=== PATIENT | female | born 1955 | race Caucasian/White ===

== ENCOUNTER 2021-06-03 14:41 | Emergency (ER) | payer OTHER ==
[~2021-06-03] VITALS: Ht 160 cm; Wt 86.2 kg
[2021-06-03 14:43] VITALS: BP 155/100
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
[2021-06-03] MEDS ORDERED: ACET-2619 PO (17:13)
[2021-06-03] MEDS ORDERED: LIDO1ADH47 TP (17:13)
[2021-06-03 17:21] VITALS: BP 155/100
--- NOTE | 2021-06-03 17:22 | NUR ---
Patient discharged with v/s stable. Written and verbal after care instructions given and explained. Patient alert, oriented and verbalized understanding of instructions. Ambulatory with steady gait. All questions addressed prior to discharge. ID band removed. Patient advised to follow up with PMD. Rx of acetaminophen, lidocaine (script) given. Patient educated on indication of medication including possible reaction and side effects. Opportunity to ask questions provided and answered.
== END 2021-06-03 17:22 | disposition home or self-care (01) ==
LOC: MED 14:41
DX: S16.1XXA Strain of muscle, fascia and tendon at neck level, initial encounter (principal); R07.89 Other chest pain; Z79.899 Other long term (current) drug therapy; V89.2XXA Person injured in unspecified motor-vehicle accident, traffic, initial encounter; Y93.89 Activity, other specified; Y92.89 Other specified places as the place of occurrence of the external cause; Y99.8 Other external cause status
CPT/HCPCS: 71101; 99283; Q0092